=== PATIENT | female | born 1945 | race Caucasian/White ===

== ENCOUNTER 2016-12-16 13:33 | Emergency (ER) | payer MEDICARE, OTHER ==
[2016-12-16 14:28] VITALS: BP 114/67
--- OUTSIDE RECORDS SUMMARY | 2016-12-16 15:16 | XMS REPORT | Continuity of Care Document ---
:1945 Author Organization [facility] ([facility]) Address [address] [place] [address] Phone [phone] Care Team Providers Name Role Phone Darrell HagerSalazar Primary Care Provider [phone] Source Comments This disclosure is being made pursuant to the Care Everywhere program, applicable federal and state laws, and may not contain all informaitonavailable regarding this patient.[facility] ([facility]) Active Allergies and Adverse Reactions No Active Allergies Current Medications Prescription Sig. Disp. Refills Start Date End Date Status lisinopril PO Take by mouth. Active calcium citrate PO Take by mouth. Active chlorhexidine 0.12 % Take 15 mL by mouth 150 mL 1 05/05/2014 Active oral rinse 2 times daily. Swish and expectorate. Nothing by mouth for 30 minutes after use. Indications: GINGIVITIS Active Problems Problem Noted Date Mycosis fungoides, unspecified site, extranodal and solid organ sites 2007 Social History Tobacco Use Types Packs/Day Years Used Date Current Every Day Smoker 0.5 Alcohol Use Drinks/Week oz/Week Comments No Last Filed Vital Signs Vital Sign Reading Time Taken Blood Pressure 115/68 05/05/2014 7:32 PM CDT Pulse 71 05/05/2014 7:32 PM CDT Temperature 36.2 C (97.2 F) 05/05/2014 7:32 PM CDT Respiratory Rate 20 05/05/2014 7:32 PM CDT Height 1.635 m (5' 4.37") 06/29/2008 3:01 PM SR. MANAGER Weight 58.296 kg (128 lb 8.3 oz) 06/29/2008 3:01 PM SR. MANAGER Body Mass Index 21.81 06/29/2008 3:01 PM SR. MANAGER Oxygen Saturation 96% 05/05/2014 7:32 PM CDT Plan of Care Health Maintenance Due Date Last Done Comments HCV Screening 1945 Hepatitis B Vaccine (1 of 3 - Primary Series) 1945 Tdap Vaccine 1956 Lipid Disorder Screening 1963 Td Vaccine 1963 Mammogram 1985 Colonoscopy 1995 Zoster Vaccine 2005 Osteoporosis Screening (DXA Bone Density) 2010 Pneumococcal Vaccine (1 of 2 - PCV13) 2010 Influenza Vaccine: Seasonal (#1) 02/19/2016 Results from Last 3 Months Not on file
--- NOTE | 2016-12-16 15:22 | ERNOTE ---
Date of Service: 12/16/16 Time Seen by Provider: 12/16/16 15:09 Stated Complaint: COUGH Presenting Symptoms:: cough, other - sinus congestion Source: patient Exam Limitations: no limitations Immunizations: IMMUNIZATION HX Immunizations Up to Date Yes History of Influenza Vaccine No Hx Pneumococcal Vaccination Yes Allergies/Adverse Reactions: Allergies No Known Allergies Allergy (Verified 05/06/16 19:43) Home Medications: HOME MEDICATIONS Calcium Carbonate/Vitamin D3 [Calcarb 600 With Vitamin D] 1 tab PO BID 11/23/12 [Last Taken 11/23/12] Lisinopril/Hydrochlorothiazide [Lisinopril-Hctz 20-12.5 mg Tab] 1 each PO DAILY 11/23/12 [Last Taken 11/23/12] Benzonatate [Tessalon] 100 mg PO HS 12/16/16 [Last Taken Unknown] Doxycycline Monohydrate 100 mg PO BID #20 tablet 12/16/16 [Last Taken Unknown] predniSONE [Prednisone] 3 tab PO DAILY #9 tab 12/16/16 [Last Taken Unknown] - History of Present Ilness Narrative: Pt. comes in with c/o cough and sinus congestion for a week. Pt. denies any CP, SOB, NVD, but does state that she ahs had some chills and fatigue. Pt. denies any prehospital treatment but states that she has tessalon perles for her chronic cough that is not as bad as this has been. Review of Systems - Review of Systems Constitutional: Present: no symptoms reported. Absent: recent illness, fever, chills, fatigue, malaise EYE: Present: no symptoms reported ENT: Present: nose congestion Respiratory: Present: cough. Absent: shortness of breath, wheezing Cardiology: Present: no symptoms reported. Absent: chest pain, palpitations, edema Gastrointestinal/Abdominal: Present: no symptoms reported. Absent: nausea, vomiting, diarrhea Genitourinary: Present: no symptoms reported Musculoskeletal: Present: no symptoms reported. Absent: back pain, joint pain Skin: Present: no symptoms reported Neurological: Present: no symptoms reported. Absent: headache, dizziness/light- headedness, numbness, tingling All Other Systems: All systems neg except as marked - Patient's Past Medical History Patient History - Medical: Osteoporosis Patient History - Cardiac/Respiratory: Hypertension Patient History - Cancer: No Hx of Cancer Patient History - Surgical Procedures: Cholecystectomy, Hysterectomy Patient History - Other: None - Social History Living Situations: home Abuse History: No History of abuse Psych History: No pertinent hx Smoking Status: Current every day smoker Have you smoked in the past 12 months: Yes Alcohol Use: none Drug Use: none - Immunizations Immunizations Up to Date: Yes Hx Pneumococcal Vaccination: Yes History of Influenza Vaccine: No Physical Exam - Physical Exam General Appearance: Present: wd/wn, alert, no apparent distress Eye Exam: Normal inspection: bilateral, PERRL: bilateral, EOMI: bilateral Ears, Nose, Throat: Present: sinus pain/drainage - frontal and maxillary Neck: Present: normal inspection, nontender. Absent: lymphadenopathy (R), lymphadenopathy (L) Respiratory: Present: no respiratory distress, no accessory muscle use, chest nontender, decreased breath sounds. Absent: rhonchi, wheezing Cardiovascular/Chest: Present: regular rate, rhythm, no murmur, normal peripheral pulses Gastrointestinal/Abdominal: Present: normal bowel sounds, nontender, nondistended, soft, no organomegaly Back Exam: Present: normal inspection, normal range of motion, no CVA tenderness , no vertebral tenderness Extremity Exam: Present: normal inspection, non-tender, normal range of motion, no edema Neurological Exam: Present: alert, oriented, normal mood/affect, no motor/ sensory deficits Skin Exam: Present: normal color, warm/dry. Absent: pallor, skin rash ED Progress - Vital Signs Patient's Vital Signs:: I have reviewed the patient's vital signs. Vital Signs: Vital Signs 12/16/16 14:23 Temperature 36.5 C Pulse Rate 73 Respiratory 16 Rate Blood Pressure 114/67 O2 Sat by Pulse 98 Oximetry - X-Ray X-Ray #1 X-Ray: chest Interpretation: Interp. by me X-ray Comments: bronchial cuffing, no consolidation, nodule incidental RLL - Progress/Reassessment Chief Complaint: Upper Respiratory Symptoms Departure - Departure Clinical Impression: Bronchitis Sinusitis, acute Qualifiers: Sinusitis location: maxillary Recurrence: recurrent Qualified Code(s): J01.01 - Acute recurrent maxillary sinusitis Disposition: Home self-care Condition: Good Instructions: Sinusitis, Adult, [id number] Additional Instructions: Please follow up with primary provider in 2-3days. Referrals: Jama Vigil MD [Primary Care Provider] - Prescriptions: Doxycycline Monohydrate 100 mg PO BID #20 tablet predniSONE [Prednisone] 3 tab PO DAILY #9 tab
[2016-12-16] MEDS ORDERED: DOXYCYCLINE HYCLATE 100 MG TABLET PO ONE (16:02)
[2016-12-16] MEDS ORDERED: METHYLPREDNISOLONE ACETATE 80 MG/ML VIAL IM ONE (16:02)
[2016-12-16] MEDS ORDERED: DOXYCYCLINE HYCLATE 100 MG TABLET ONE (16:06)
[2016-12-16] MEDS ORDERED: METHYLPREDNISOLONE ACETATE 80 MG/ML VIAL ONE (16:06)
== END 2016-12-16 16:11 | disposition home or self-care (01) ==
LOC: ER 13:33
DX: J40 Bronchitis, not specified as acute or chronic (principal); Z72.0 Tobacco use; J01.01 Acute recurrent maxillary sinusitis; I10 Essential (primary) hypertension; M81.0 Age-related osteoporosis without current pathological fracture